=== PATIENT | female | born 1955 | race Caucasian/White ===

== ENCOUNTER 2018-03-29 16:42 | Emergency (ER) | payer BC, SELFPAY ==
--- NOTE | 2018-03-29 | GASB_PTH ---
PATIENT: ONELIA MOAY LOC: ED U#:[id number] AGE/SX: 62/F ROOM: RE03/29/[address]: Dr. Kavin Bell MD : 1955 BED: DIS: 03/29/2018 SPEC #: [id number] RECD: 03/29/18 19:51 STATUS: MENDOZA KALE #: [id number] MOODY: 03/29/18 00:[address]: Kavin Bell DEPT: SURGICAL PATHOLOGY RECD BY: Sanjiv Walker ENTERED: 03/30/18 08:35 SP TYPE: Gastric Bx OTHR DR: No Primary Care Phys Tissues: A - Gastric mucous membrane B - Esophageal mucous membrane Procedures: Surgery Specimen Level IV HEADER OPERATION: EGD ([facility]) PRE-OP DIAGNOSIS: Food impaction TISSUE SUBMITTED: A - Antral biopsy and H. pylori, B - Distal esophageal biopsy MICROSCOPIC DIAGNOSIS A. Gastric antrum, biopsy: Chronic active gastritis. B. Distal esophagus, biopsy: Reflux esophagitis. AM:enrique 03/31/18 COMMENT A. The results of immunohistochemistry for Helicobacter pylori will be reported separately ([id number]). MICROSCOPIC DESCRIPTION Slides are reviewed. GROSS DESCRIPTION A - Received in fixative is one container labeled with the patient's name and designated antral biopsy and H. pylori. The specimen consists of multiple irregular fragments of light butler soft tissue that in aggregate measure 0.6 x 0.1 x 0.1 cm. The specimen is totally submitted in one cassette. B - Received in fixative is one container labeled with the patient's name and designated distal esophageal biopsy. The specimen consists of multiple irregular fragments of light butler soft tissue that in aggregate measure 0.5 x 0.1 x 0.1 cm. The specimen is totally submitted in one cassette. / LINDA:enrique 03/30/18 TC:2 CPT: 58189 x2
[2018-03-29 16:43] VITALS: BP 166/68; PULSE 89; RESP 18; TEMP 36.8; O2SAT 98; BMI 24.2
--- NOTE | 2018-03-29 17:05 | IMM_PTH ---
PATIENT: ONELIA MOYA LOC: ED U#:[id number] AGE/SX: 62/F ROOM: RE03/29/[address]: [address]. Kavin Bell MD : 1955 BED: DIS: 03/29/2018 SPEC #: [id number] RECD: 03/30/18 12:44 STATUS: MENDOZA REQ #: [id number] MOODY: 03/29/18 17:[address]: Kavin Bell DEPT: IMMUNOHISTOCHEMISTRY RECD BY: Kamilah Johnson ENTERED: 03/30/18 12:45 SP TYPE: IMMUNO OTHR DR: No Primary Care Phys Tissues: A - Stomach, NOS Procedures: H Pylori (initial) PHYSICIAN & INSTITUTION [place] [address] SPECIMEN INFORMATION: Tissue Source: A - Antral biopsy Clinical Info: Food impaction Specimen Number: [id number] CPT code: 30594 METHODOLOGY: Deparaffinized sections of prefer/formalin-fixed tissue or PAP/DQ stained slides are incubated with monoclonal/polyclonal antibodies/oligonucleotide probes. Localization is made via biotin free immunoperoxidase method. Appropriate controls are performed and reacted as expected. Results on target cell population are indicated in the following table: RESULTS: ANTIBODY / CLONE RESULT Block A H Pylori (polyclonal) positive These tests were developed and their performance characteristics determined by [facility]. They may not have been cleared or approved by the U.S. Food and Drug Administration. The FDA has determined that such clearance or approval is not necessary. INTERPRETATION: A. Antral biopsy: Positive for Helicobacter pylori organisms. AM:enrique 03/31/18
--- NOTE | 2018-03-29 17:18 | NURSING ---
DR Aneesh CISNEROS PAGED AND ANSWERED CALL.
--- NOTE | 2018-03-29 17:46 | NURSING ---
DR Aneesh CISNEROS IN ROOM
--- NOTE | 2018-03-29 17:53 | PCM.HP.STD ---
Problem List (1) Esophageal obstruction due to food impaction Status: Acute History of Present Illness Date of Admission: 03/29/18 The patient is a 62 year old F who presents to the emergency department with acute onset of inability to swallow food or liquids after having eaten a piece of chicken. She states that she has never had a previous upper endoscopy. Upon questioning her however she states that she intermittently will choke on food. She is very anxious at the moment and hyperventilating. She is very nonspecific as to what food particulate causes her trouble. She has never had a colonoscopy. She has not had any unexpected weight loss. She does not currently have any primary care physician. She is not on any routine medications. She is accompanied by family members today. Past Medical History Allergies No Known Allergies Allergy (Verified 03/29/18 16:43) Surgical History: appendectomy, - - History of tubal ligation Smoking Status: Never smoker Alcohol: None Review of Systems Constitutional: Denies: Fever HEENT: Reports: Difficulty Swallowing, Dysphasia Cardiovascular: Denies: Chest Pain Respiratory: Reports: Cough Gastrointestinal: Denies: Abdominal Pain Genitourinary: Denies: Dysuria Psychiatric: Reports: Anxiety Endocrine: Denies: Change in Body Habitus VTE Information - Inpt Only VTE Present on Admission: No - Physical Exam General: Alert HEENT: - - Perioral irritation and rhinorrhea Oral: Moist Mucosa Neck: Supple Lungs: Clear to auscultation, Normal air movement, Tachypneic, - Cardiovascular: Regular rate, Regular Rhythm, Tachycardic Abdomen: Bowel Sounds Present, Soft, Non Tender, Non-Distended Extremities: No Calf Tenderness Lymphatic: No Cervical, Supraclavicular, or Inguinal Adenopathy Psych/Mental Status: Anxious Vital Signs Temp Pulse Resp BP Pulse Ox 98.3 F 89 18 166/68 H 98 03/29/18 16:43 03/29/18 16:43 03/29/18 16:43 03/29/18 16:43 03/29/18 16:43 Oxygen Delivery Method Room Air Weight: 150 lb Body Mass Index (BMI) 24.2 Assessment/Plan All Active Problems Esophageal obstruction due to food impaction (Acute) Findings are very much consistent with a baked chicken esophageal foreign body acute obstruction. The patient is extraordinarily anxious and panicked. She is hyperventilating and mildly tachycardic. I was contacted for consultation by Dr. Dillan Hammond. He is recommending our ability to proceed with esophagogastroduodenoscopy with foreign body food obstruction in the emergency room with Dr. Hammond providing conscious sedation. I concur. I have discussed with the patient and family members present the technique, benefits, risks, alternatives. No guarantees of success have been offered. She has had an opportunity to ask and have questions answered. We will proceed as soon as the endoscopy nursing staff can return to the hospital. Kavin Bell M.D., F.A.C.S.
--- NOTE | 2018-03-29 18:12 | NURSING ---
ENDO NURSE IN ROOM
[2018-03-29 18:18] VITALS: BP 120/93; PULSE 76; RESP 18
[2018-03-29 18:19] VITALS: BP 120/93; BP 159/71; BP 166/79; BP 168/81; BP 176/90; BP 194/115; BP 194/89; PULSE 77; PULSE 80; PULSE 87; PULSE 92; PULSE 96; PULSE 97; PULSE 99; RESP 14; RESP 16; RESP 23; RESP 98; O2SAT 100; O2SAT 82; O2SAT 84; O2SAT 91; O2SAT 97; O2SAT 98; O2SAT 99
[2018-03-29] MEDS: Lidocaine 2% 100 MG/5 ML Syringe 80 MG IV BOLUS (18:33)
[2018-03-29] MEDS: Propofol 200 MG/20 ML Vial IV BOLUS (18:54)
[2018-03-29 18:57] VITALS: BP 165/83; O2SAT 100
--- NOTE | 2018-03-29 19:11 | ED.DCSUM_ITS ---
- ER Visit Summary Date of Service: 03/29/18 Chief Complaint: Esophageal obstruction secondary to chicken food bolus History of Present Illness: The patient is a 62 F who was eating baked chicken. States the chicken became stuck. This occurred at approximately 1400. She denies prior problems with swallowing or obstruction. She denies allergies to soy products or egg products. She denies problems with anesthesia in the past. She denies fever, chills night sweats. She denies hematemesis. She has no other complaints. Physical Examination: Vital signs noted. She is afebrile. She is not hypoxic. Head is atraumatic normocephalic. Pupils are equal round reactive. Extraocular muscles are intact. TMs are pearly white with landmarks noted. Nares patent with no drainage. Posterior pharynx without erythema or exudate. Uvula is midline. There is no dysphonia or dysphasia. Trachea is midline. There is no stridor with auscultation of the neck. Heart is regular without murmur, gallop or rub. S1 and S2 are normal. Lungs are clear to auscultation with good movement of air bilaterally. Abdomen soft nontender. No skin lesions noted. Neuro exam is nonfocal. Test Results: None Emergency Department Course and Treatment: Dr. Kavin Bell was contacted regarding EGD. Patient was consented by me for deep sedation. Patient was consented for EGD by Dr. Kavin Bell. Patient received a total of 200 mg of propofol and 70 mg of ketamine. She also received 80 mg of lidocaine to suppress her gag reflex/cough. Total time for deep procedural sedation was 18 minutes 46 seconds. Patient was consented for deep sedation by me. She was a spine risk benefits of procedure. She was informed of the most common problems. She was given opportunity ask questions and none were asked. She tolerated procedure well. Treatment Plan: Follow-up with Dr. Kavin Bell next week and omeprazole per his recommendation Disposition: Discharge to home with family Impression: 1. Esophageal obstruction secondary to food bolus, chicken 2. Deep procedural sedation performed by , 18 minutes 46 seconds This note was generated with CitiLogicsation software. It may contain incorrect words, spelling, and punctuation that were not noted in review of the chart prior to signing ED Disposition - Plan for ED Patient: Disposition: Home or Assisted Living Chief Complaint: Foreign Body
[2018-03-29 19:12] VITALS: BP 158/81; PULSE 74; RESP 15; O2SAT 100
[2018-03-29] MEDS: Acetaminophen 500 MG Tablet 1000 MG PO (20:17)
[2018-03-29] MEDS: BENZOCAINE/MENTHOL 1 LOZENGE MUCOUS MEM (20:18)
--- NOTE | 2018-03-29 20:57 | ED.RN ---
SECONDARY ACCOUNT CREATED AT THIS TIME DUE TO PATIENT UNABLE TO GET DISCHARGE INSTRUCTIONS DUE TO REGISTRATION ERROR. NO NURSING CARE WAS GIVEN UNDER THIS ACCOUNT
--- NOTE | 2018-03-29 21:07 | ED.VISSUMM ---
- ER Visit Summary Date of Service: 03/29/18 Chief Complaint: [] History of Present Illness: The patient is a 62 F [] Physical Examination: [] Test Results: [] Emergency Department Course and Treatment: [] Treatment Plan: [] Disposition: [] Impression: [] This note was generated with UserZoom dictation software. It may contain incorrect words, spelling, and punctuation that were not noted in review of the chart prior to signing ED Disposition - Plan for ED Patient: Disposition: Home or Assisted Living Chief Complaint: Other, Pain/Inj
--- NOTE | 2018-03-29 21:11 | ED.DCSUM_ITS ---
- ER Visit Summary Date of Service: 03/29/18 Chief Complaint: [] History of Present Illness: The patient is a 62 F [] Physical Examination: [] Test Results: [] Emergency Department Course and Treatment: [] Treatment Plan: [] Disposition: [] Impression: [] This note was generated with Birst dictation software. It may contain incorrect words, spelling, and punctuation that were not noted in review of the chart prior to signing ED Disposition - Plan for ED Patient: Disposition: Home or Assisted Living Chief Complaint: Other, Pain/Inj Instructions: ED Foreign Body Esophageal Rslv Prescriptions: Omeprazole 40 mg PO DAILY #14 capsule.dr Referrals: Care Physician,No Primary [Primary Care Provider] - Kavin Bell MD [STAFF PHYSICIAN] - 3-5 Days
[2018-03-29 21:20] VITALS: BP 154/82; PULSE 76; RESP 16; O2SAT 95
--- NOTE | 2018-03-30 13:26 | OP.ENDO_ITS ---
Patient Name: Maria C Olivas Procedure Date: 03/29/2018 6:18 PM Date of : 1955 Age: 62 Procedure: Upper GI endoscopy Indications: Foreign body in the esophagus Providers: Kavin Bell MD Medicines: See note and sedation per Dr Hammond Complications: No immediate complications. Procedure: Pre-Anesthesia Assessment: - Prior to the procedure, a History and Physical was performed, and patient medications and allergies were reviewed. The patient's tolerance of previous anesthesia was also reviewed. The risks and benefits of the procedure and the sedation options and risks were discussed with the patient. All questions were answered, and informed consent was obtained. Prior Anticoagulants: The patient has taken no previous anticoagulant or antiplatelet agents. ASA Grade Assessment: II - A patient with mild systemic disease. After reviewing the risks and benefits, the patient was deemed in satisfactory condition to undergo the procedure. After obtaining informed consent, the endoscope was passed under direct vision. Throughout the procedure, the patient's blood pressure, pulse, and oxygen saturations were monitored continuously. The gastroscope was introduced through the mouth, and advanced to the second part of duodenum. The upper GI endoscopy was accomplished without difficulty. The patient tolerated the procedure well. Scope In: Scope Out: Findings: The Z-line was irregular and was found 38 cm from the incisors. Biopsies were taken with a cold forceps for histology. A small hiatal hernia was present. A mild Schatzki ring was found at the gastroesophageal junction. Biopsies were taken with a cold forceps for histology. Food was found in the lower third of the esophagus. The endoscope was removed, and an overtube with cap was fitted. The scope and overtube were then reinserted via the mouth and advanced to the esophagus to aid in foreign body removal. Diffuse mildly erythematous mucosa without bleeding was found in the gastric antrum. Biopsies were taken with a cold forceps for histology. The examined duodenum was normal. Impression: - Z-line irregular, 38 cm from the incisors. Biopsied. - Small hiatal hernia. - Mild Schatzki ring. Biopsied. - Food in the lower third of the esophagus. Advanced into the stomach facilitated by use of an overtube. - Erythematous mucosa in the antrum. Biopsied. - Normal examined duodenum. - An overtube with cap was used to aid in foreign body removal. Recommendation: - Discharge patient to home. - Resume previous diet. - Use Prilosec (omeprazole) 40 mg PO daily. - Return to my office in 1 week. - Continue present medications. Procedure Code(s): --- Professional --- 72966, Esophagogastroduodenoscopy, flexible, transoral; with biopsy, single or multiple CPT copyright 2017 [employer]. All rights reserved. The codes documented in this report are preliminary and upon burglar alarm superintendent review may be revised to meet current compliance requirements. Kavin Bell MD 03/29/2018 7:14:53 PM This report has been signed electronically. Number of Addenda: 0 Note Initiated On: 03/29/2018 6:18 PM
== END 2018-03-29 21:21 | disposition home or self-care (01) ==
PROVIDERS: Emergency Provider Emergency Medicine; Visit Provider Surgery
PROC: 0DJ08ZZ Inspection of Upper Intestinal Tract, Via Natural or Artificial Opening Endoscopic (ICD-10-PCS; CPT 43235; principal; 2018-03-29 17:00)
DX: K22.2 Esophageal obstruction (principal); K44.9 Diaphragmatic hernia without obstruction or gangrene; T18.120A Food in esophagus causing compression of trachea, initial encounter; T17.220A Food in pharynx causing asphyxiation, initial encounter
CPT/HCPCS: 43239; 88305; 88342; 99152; 99285; J7030; A4216

== ENCOUNTER 2018-06-02 09:04 | Day surgery (SDC) | payer BC, SELFPAY ==
[2018-06-02] VITALS (7 sets, daily range): BP systolic 96–120; BP diastolic 57–72; PULSE 71–81; RESP 14–16; TEMP 36.6–37.4; O2SAT 95–97; BMI 30.7
--- NOTE | 2018-06-02 | GASB_PTH ---
PATIENT: ONELIA MOYA LOC: EN U#:[id number] AGE/SX: 62/F ROOM: RE06/02/[address]: Dr. Kavin Bell MD : 1955 BED: DIS: 06/02/2018 SPEC #: [id number] RECD: 06/02/18 13:07 STATUS: MENDOZA KALE #: [id number] MOODY: 06/02/18 00:[address]: Kavin Bell DEPT: SURGICAL PATHOLOGY RECD BY: Sanjiv Walker ENTERED: 06/02/18 13:07 SP TYPE: Gastric Bx OTHR DR: No Primary Care Phys Tissues: A - Gastric mucous membrane B - Esophagus, NOS Procedures: Special Stain Group I Surgery Specimen Level IV GMS Stain (control) HEADER OPERATION: EGD ([facility]) with dilatation PRE-OP DIAGNOSIS: Postesophageal obstruction due to food impaction TISSUE SUBMITTED: A - Biopsy gastric antrum, H. pylori and path, B - Biopsy mid esophagus MICROSCOPIC DIAGNOSIS A. Gastric antrum, biopsy: Moderate gastritis. See microscopic description and comment. B. Mid esophagus, biopsy: Fragments of squamous epithelium with changes consistent with eosinophilic esophagitis and chronic inflammation. Superficial acute inflammation. Special stain for fungi is negative for organisms; matched control is appropriate. See comment. SJ:enrique 06/05/18 COMMENT A. The results of immunohistochemistry for Helicobacter pylori will be reported separately ([id number]). B. The specimen shows increased number of eosinophils (more than 20 per high power field) consistent with eosinophilic esophagitis. MICROSCOPIC DESCRIPTION Slides are reviewed. A. The specimen shows fragments of gastric mucosa with chronic inflammatory cell infiltrates in the lamina propria consisting of lymphocytes and plasma cells, consistent with moderate chronic gastritis. GROSS DESCRIPTION A - Received in fixative is one container labeled with the patient's name and designated gastric antrum. The specimen consists of one irregular fragment of light butler soft tissue that measures 0.6 x 0.5 x 0.1 cm. The specimen is totally submitted in one cassette. B - Received in fixative is one container labeled with the patient's name and designated mid esophagus. The specimen consists of multiple irregular fragments of light butler soft tissue that in aggregate measure 0.6 x 0.3 x <0.1 cm. The specimen is totally submitted in one cassette. / AM:enrique 06/02/18 TC:3 CPT: 85191 x2, 98843
--- NOTE | 2018-06-02 10:15 | IMM_PTH ---
PATIENT: ONELIA MOYA LOC: EN U#:[id number] AGE/SX: 62/F ROOM: RE06/02/[address]: Dr. Kavin Bell MD : 1955 BED: DIS: 06/02/2018 SPEC #: [id number] RECD: 06/02/18 13:39 STATUS: MENDOZA REQ #: [id number] MOODY: 06/02/18 10:[address]: Kavin Bell DEPT: IMMUNOHISTOCHEMISTRY RECD BY: Kamilah Johnson ENTERED: 06/02/18 13:40 SP TYPE: IMMUNO OTHR DR: No Primary Care Phys Tissues: A - Stomach, NOS Procedures: H Pylori (initial) PHYSICIAN & INSTITUTION [place] [address] SPECIMEN INFORMATION: Tissue Source: A - Biopsy gastric antrum Clinical Info: Postesophageal obstruction due to food Specimen Number: [id number] CPT code: 97781 METHODOLOGY: Deparaffinized sections of prefer/formalin-fixed tissue or PAP/DQ stained slides are incubated with monoclonal/polyclonal antibodies/oligonucleotide probes. Localization is made via biotin free immunoperoxidase method. Appropriate controls are performed and reacted as expected. Results on target cell population are indicated in the following table: RESULTS: ANTIBODY / CLONE RESULT Block A H Pylori (polyclonal) negative These tests were developed and their performance characteristics determined by [facility]. They may not have been cleared or approved by the U.S. Food and Drug Administration. The FDA has determined that such clearance or approval is not necessary. INTERPRETATION: A. Gastric antrum, biopsy: Negative for Helicobacter pylori organisms. SJ:enrique 06/05/18
--- NOTE | 2018-06-02 10:50 | OP.ENDO_ITS ---
Patient Name: Maria C Olivas Procedure Date: 06/02/2018 10:17 AM Date of : 1955 Age: 62 Procedure: Upper GI endoscopy Indications: Dysphagia Providers: Kavin Bell MD Referring MD: Kavin Bell MD Medicines: See the Anesthesia note for documentation of the administered medications Complications: No immediate complications. Procedure: Pre-Anesthesia Assessment: - Prior to the procedure, a History and Physical was performed, and patient medications and allergies were reviewed. The patient's tolerance of previous anesthesia was also reviewed. The risks and benefits of the procedure and the sedation options and risks were discussed with the patient. All questions were answered, and informed consent was obtained. Prior Anticoagulants: The patient has taken no previous anticoagulant or antiplatelet agents. ASA Grade Assessment: II - A patient with mild systemic disease. After reviewing the risks and benefits, the patient was deemed in satisfactory condition to undergo the procedure. After obtaining informed consent, the endoscope was passed under direct vision. Throughout the procedure, the patient's blood pressure, pulse, and oxygen saturations were monitored continuously. The gastroscope was introduced through the mouth, and advanced to the second part of duodenum. The upper GI endoscopy was accomplished without difficulty. The patient tolerated the procedure well. Scope In: 10:32:13 AM Scope Out: 10:42:51 AM Total Procedure Duration Time 0 hours 10 minutes 38 seconds Findings: LA Grade A (one or more mucosal breaks less than 5 mm, not extending between tops of 2 mucosal folds) esophagitis with no bleeding was found 30 cm from the incisors. Biopsies were taken with a cold forceps for histology. A medium-sized hiatal hernia was present. A mild Schatzki ring was found at the gastroesophageal junction. A guide wire was placed, then the scope was withdrawn. Using the wire as a guide, dilation with an 18-19-20 mm balloon dilator was performed to 20 mm. The dilation site was examined following endoscope reinsertion and showed mild improvement in luminal narrowing. Estimated blood loss was minimal. Diffuse mildly erythematous mucosa without bleeding was found in the gastric antrum. Biopsies were taken with a cold forceps for histology. The examined duodenum was normal. Impression: - LA Grade A reflux esophagitis in the mid esophagus, friable. Biopsied. - Medium-sized hiatal hernia. Wide open EG junction with free reflux - Mild Schatzki ring. Dilated 20mm - Erythematous mucosa in the antrum. Biopsied looking for resolution of H pylori - Normal examined duodenum. Recommendation: - Discharge patient to home. - Resume previous diet. - Continue present medications. - Telephone my office for pathology results in 1 week. Procedure Code(s): --- Professional --- 19537, Esophagogastroduodenoscopy, flexible, transoral; with insertion of guide wire followed by passage of dilator(s) through esophagus over guide wire 48436, 59, Esophagogastroduodenoscopy, flexible, transoral; with biopsy, single or multiple Diagnosis Code(s): --- Professional --- K21.0, Gastro-esophageal reflux disease with esophagitis K44.9, Diaphragmatic hernia without obstruction or gangrene K22.2, Esophageal obstruction K31.89, Other diseases of stomach and duodenum R13.10, Dysphagia, unspecified CPT copyright 2017 [employer]. All rights reserved. The codes documented in this report are preliminary and upon professional fee coder review may be revised to meet current compliance requirements. Kavin Bell MD 06/02/2018 10:49:16 AM This report has been signed electronically. Number of Addenda: 0 Note Initiated On: 06/02/2018 10:17 AM
== END 2018-06-02 11:30 | disposition home or self-care (01) ==
LOC: EN 09:06 → AC 09:07
PROVIDERS: Referring Provider Surgery; Visit Provider Surgery
PROC: 0DJ08ZZ Inspection of Upper Intestinal Tract, Via Natural or Artificial Opening Endoscopic (ICD-10-PCS; CPT 43235; principal; 2018-06-02 10:10)
DX: K21.0 Gastro-esophageal reflux disease with esophagitis (principal); K44.9 Diaphragmatic hernia without obstruction or gangrene; R13.10 Dysphagia, unspecified; K22.2 Esophageal obstruction; T18.128A Food in esophagus causing other injury, initial encounter; K31.89 Other diseases of stomach and duodenum; K29.70 Gastritis, unspecified, without bleeding
CPT/HCPCS: 43239; 43248; 88305; 88312; 88342; J7120

== ENCOUNTER 2018-06-15 08:45 | Day surgery (SDC) | payer BC, SELFPAY ==
[2018-06-07 09:56] VITALS: BMI 30.7
[2018-06-15 09:06] VITALS: BP 120/94; PULSE 78; RESP 16; TEMP 36.7; O2SAT 99
== END 2018-06-15 09:51 | disposition home or self-care (01) ==
PROVIDERS: Referring Provider Surgery; Visit Provider Surgery
PROC: F00ZJWZ Instrumental Swallowing and Oral Function Assessment using Swallowing Equipment (ICD-10-PCS; CPT 43235; principal; 2018-06-15 08:55)
DX: R13.10 Dysphagia, unspecified (principal)
CPT/HCPCS: 78258

== ENCOUNTER 2021-11-06 13:40 | Emergency (ER) | payer MEDICARE, SELFPAY ==
[2021-11-06 13:41] VITALS: BP 116/70; PULSE 81; RESP 18; TEMP 36.4; O2SAT 98; BMI 28.3
[2021-11-06] MEDS: 0.9% Normal Saline 1,000 ML 1000 ML IV (15:05)
--- NOTE | 2021-11-06 15:08 | CM.ED ---
Social Work Note Reason for Referral: No PCP SW reviewed chart, no PCP listed for pt. SW in to speak with pt. Pt confirms she has no PCP. SW provided pt with PCP list. Phyllis Poe ARBITRATOR, VIBRATING SCREED OPERATOR
[2021-11-06 15:15] LABS: Absolute Lymphocyte Count 0.89 X10^3/uL (0.83-4.51); Absolute Neutrophil Count 0.8 X10^3/uL (2.0-7.7); Basophil# 0.02 X10^3/uL; Basophil% 0.9 % (0-1); Hematocrit 43.9 % (37-47); Hemoglobin 14.7 g/dL (12.0-15.0); Lymphocyte # 0.89 X10^3/ul (0.83-4.51); Lymphocyte % 41.8 % (19-41); Mean Corp Hgb Conc 33.5 g/dL (32-36); Mean Corpuscular Hgb 29.5 pg (27.0-32.0); Mean Platelet Vol. 11.1 fl (6.2-12.0); Monocyte# 0.44 X10^3/uL; Monocyte% 20.7 % (0-10); NRBC Flagged by Analyzer 0 % (0-5); Neutrophil # 0.77 X10^3/uL (2.7-7.7); Neutrophil % 36.1 % (47-70); POSITIVE DIFFERENTIAL YES; Platelet Count 200 K/mm3 (150-450); RBC Distribution Width CV 12.5 % (11.6-14.6); RBC Distribution Width SD 40.3 fl (35.1-43.9); Red Blood Count 4.99 M/mm3 (4.2-5.4); White Blood Count 2.1 K/mm3 (4.4-11.0)
[2021-11-06 15:16] LABS: Differential Indicated SCAN CRITERIA MET
[2021-11-06 15:31] LABS: ALB/GLOB Ratio 1.1 RATIO (0.9-2.4); AST(SGOT) 31 U/L (15-37); Alanine Aminotransfer ALT/SGPT 24 U/L (13-56); Albumin, Serum 3.9 g/dL (3.2-5.0); Alkaline Phosphatase 82 U/L (45-117); Anion Gap 9 (5-15); BUN 19 mg/dL (7-18); BUN/Creat Ratio 17.9 RATIO (10-20); Calcium,Total 9.1 mg/dL (8.5-10.1); Chloride 103 mmol/L (98-107); Creatinine, Serum 1.06 mg/dL (0.55-1.02); EST Glomerular Filtration Rate 55 mL/min (>60); Est Glom Filt Rate - Afr Amer 67 mL/min (>60); Estimated Creatinine Clearance 46.98 ml/min; Globulin 3.6 g/dL (2.2-4.2); Glucose 105 mg/dL (74-106); Lipase 181 U/L (73-393); Magnesium 2.2 mg/dL (1.6-2.6); Potassium 3.2 mmol/L (3.5-5.1); Protein, Total 7.5 g/dL (6.4-8.2); Sodium Level 137 mmol/L (136-145)
[2021-11-06 15:48] LABS: Platelet Estimate ADEQUATE (ADEQ)
[2021-11-06 15:49] LABS: Red Cell Morphology NORM C+C NORMAL (NORM C&C)
[2021-11-06 16:13] LABS: Mucous, Urine 0 SEEN /hpf (<or=2+); Red Blood Cells-Urine 0 SEEN /hpf (0-5)
[2021-11-06 16:26] LABS: Color, Urine Yellow (Yellow); Glucose, Dipstick Normal (Normal); Ketone-Dipstick 5 mg/dl (Negative); Leukocyte Esterase-Dipstick 100 /ul (Negative); Nitrite-Dipstick Positive (Negative); Occult Blood-Urine 10 /ul (Negative); Protein-Dipstick 30 mg/dl (Negative); Urine Bilirubin Dipstick Negative (Negative); Urine Clarity Sl. Cloudy (Clear); Urine Urobilinogen Normal (Normal)
[2021-11-06 16:32] VITALS: BP 116/63; BP 116/70; PULSE 80; PULSE 81; RESP 16; RESP 18; TEMP 36.4; O2SAT 98; O2SAT 99
--- NOTE | 2021-11-06 16:43 | EX.ED.DYSGE1 ---
HPI History of Present Illness Chief Complaint: General Illness Informant: patient Narrative Narrative: Is a 66-year-old female with history of GERD, eosinophilic esophagitis and H. pylori presenting with fever, chills and dizziness. She states of 3 days ago she had a temperature of 100.7. She notes has had decreased oral intake. She is a decreased appetite as well as decreased energy level. She is also had diarrhea. She states has had 4 episodes of nonbloody diarrhea today. She denies any associated chest pain, shortness of breath or difficulty breathing. No associated nausea or vomiting. Denies any sick contacts but does work at [employer]. Has had decreased urination. Denies any recent antibiotic use and denies any known history of C. difficile. No other complaints at this time. [facility] Medical History (Updated 11/06/21 @ 16:[address] Claudia Lu DO) EE (eosinophilic esophagitis) Esophageal obstruction due to food impaction Helicobacter pylori gastritis Home Medications cephalexin 500 mg capsule 500 mg PO Q8H #21 caps 11/06/21 [Rx Last Taken Unknown] ondansetron HCl 4 mg tablet 4 mg PO Q8H 3 days #9 tabs 11/06/21 [Rx Last Taken Unknown] Allergy/AdvReac Type Severity Reaction Status Date / Time No Known Allergies Allergy Verified 11/06/21 13:42 Family History Father Prostate cancer Surgical History Hx of appendectomy Hx of tubal ligation Social History Smoking Status: Never smoker second hand exposure: No alcohol intake: never substance use type: does not use caffeine: Yes what type of physical activity do you participate in: none frequency: does not exercise seatbelt use: always ROS ROS ED Constitutional Constitutional ED: Reports chills, fever(s), sweats and other Details: Decreased appetite Eyes Eyes: Denies blurry vision or change in vision ENT ENT ED: Denies rhinorrhea or sore throat Cardiovascular Cardiovascular: Denies chest pain or palpitations Respiratory/Chest Respiratory/Chest: Denies dyspnea or dyspnea on exertion Gastrointestinal Gastrointestinal: Reports diarrhea; Denies abdominal pain, nausea or vomiting Genitourinary Genitourinary ED: Reports other Details: Decreased urination ; Denies dysuria or hematuria Musculoskeletal Musculoskeletal: Denies arthralgias or back pain Integumentary Denies Abrasions or rash Neurologic Neurologic: Reports headache(s); Denies paresthesias Psychiatric Psychiatric: Denies anxiety EXAM Physical Exam Const Vital Signs: 11/06/21 13:41 11/06/21 13:42 11/06/21 16:32 Temperature 97.5 F L Temperature Source Temporal Pulse Rate 81 80 Respiratory Rate 18 16 Respiratory Effort Normal Non-Labored Respiratory Pattern Normal Blood Pressure 116/70 116/63 Blood Pressure Mean 85 80 Pulse Ox 98 99 Oxygen Delivery Method Room Air Room Air 11/06/21 16:32 Temperature 97.5 F L Temperature Source Temporal Pulse Rate 81 Respiratory Rate 18 Respiratory Effort Respiratory Pattern Blood Pressure 116/70 Blood Pressure Mean Pulse Ox 98 Oxygen Delivery Method Room Air Positive well nourished and well developed General Appearance ED: well developed and NAD HEENT Reports dry mucous membranes Negative for trauma Mouth ED: Yes dry mucous membranes Mouth: dry mucous membranes Eyes PERRL and EOMs intact bilaterally Neck supple and no JVD Chest Wall inspection of chest normal Resp normal respiratory effort and clear to auscultation bilaterally Cardio regular rate, regular rhythm and no murmurs GI normal to inspection, nondistended, normoactive bowel sounds, non-tender and non-distended Back/Spine no CVA tenderness Extremity normal to inspection Neuro oriented x3 Motor Exam: Negative for general weakness Psych mental status grossly normal Skin no rashes or lesions noted MDM MDM MDM Narrative Medical decision making narrative: Patient's evaluated for dizziness, fever, chills and diarrhea. Physical exam is benign. Her vital signs are normal. She is currently afebrile. She is a mild leukopenia of 2.1. No left shift appreciated. Creatinine is 1.06 her potassium was 3.2. blood work otherwise largely unremarkable. Urinalysis is concerning with infection with positive nitrites, 100 of esterase and 0-5 white blood cells. Urine culture sent. Patient started on Keflex. She is discharged home with a prescription for Keflex as well as Zofran. She is counseled on return precautions. Given that her abdomen is soft and nontender of the lower suspicion for an acute intra-abdominal infection. Do not think imaging is indicated at this time. Patient is given a fluid bolus and looks improved on repeat evaluation. Discharged home in stable condition. Lab Data Attestation: I reviewed the patient's lab results. Labs: Laboratory Results - last 24 hr 11/06/21 11/06/21 11/06/21 14:04 14:04 16:05 WBC 2.1 L RBC 4.99 Hgb 14.7 Hct 43.9 MCV 88.0 MCH 29.5 MCHC 33.5 RDW Std Deviation 40.3 RDW Coeff of Bre 12.5 Plt Count 200 MPV 11.1 Immature Gran % (Auto) 0.500 Neut % (Auto) 36.1 L Lymph % (Auto) 41.8 H Reeves % (Auto) 20.7 H Eos % (Auto) 0.0 Baso % (Auto) 0.9 Absolute Neuts (auto) 0.8 L Absolute Lymphs (auto) 0.89 Nucleated RBC % 0 Differential Comment SEE COMMENT Platelet Estimate ADEQUATE RBC Morphology NORM C+C Sodium 137 Potassium 3.2 L Chloride 103 Carbon Dioxide 25.0 Anion Gap 9 BUN 19 H Creatinine 1.06 H Estim Creat Clear Calc 46.98 Est GFR (MDRD) Af Amer 67 Est GFR (MDRD) Non-Af 55 L BUN/Creatinine Ratio 17.9 Glucose 105 Calcium 9.1 Magnesium 2.2 Total Bilirubin 0.30 AST 31 ALT 24 Alkaline Phosphatase 82 Total Protein 7.5 Albumin 3.9 Globulin 3.6 Albumin/Globulin Ratio 1.1 Lipase 181 Urine Color Yellow Urine Clarity Sl. Cloudy Urine pH 5.0 Ur Specific [place] 1.020 Urine Protein 30 H Urine Glucose (UA) Normal Urine Ketones 5 H Urine Occult Blood 10 H Urine Nitrite Positive H Urine Bilirubin Negative Urine Urobilinogen Normal Ur Leukocyte Esterase 100 H Urine RBC 0 SEEN Urine WBC 0-5 SEEN Ur Squamous Epith Cells 5-10 SEEN Urine Bacteria 4+ Hyaline Casts 10-25 SEEN Urine Mucus 0 SEEN Discharge Plan Triage Chief Complaint: General Illness ED Provider: Claudia Lu Dx/Rx/DC Orders Clinical Impression: Acute UTI, Acute dehydration Instructions: ED Dehydration (Adult), ED CYSTITIS Female Adult Prescriptions: New cephalexin 500 mg capsule 500 mg PO Q8H Qty: 21 0RF ondansetron HCl 4 mg tablet 4 mg PO Q8H 3 Days Qty: 9 0RF Primary Care Provider: Care Physician,No Primary Referrals: Marcin Ogden MD [STAFF PHYSICIAN] - Care Physician,No Primary [Primary Care Provider] - Activity Restrictions/Additional Instructions: May take [id number] Pepto-Bismol for diarrhea. If you feel that you are getting worse or develop worsening abdominal pain please return to the emergency room. Try to drink lots of fluids at home. Potassium was mildly low today so try to eat or drink potassium rich foods. Disposition Disposition: Home, Self Care
[2021-11-06 16:44] LABS: Bacteria 4+ /hpf (None Seen); Squamous Epithelial Cells - UA 5-10 SEEN /hpf (5-10); White Blood Cells 0-5 SEEN /hpf (0-5)
[2021-11-06 16:45] LABS: Hyaline Cast 10-25 SEEN /lpf (0-5)
[2021-11-06] MEDS: Cephalexin 250 MG Capsule 500 MG PO (17:01)
== END 2021-11-06 17:12 | disposition home or self-care (01) ==
PROVIDERS: Emergency Provider Emergency Medicine; Visit Provider Emergency Medicine
DX: N39.0 Urinary tract infection, site not specified (principal); R19.7 Diarrhea, unspecified; E86.0 Dehydration
CPT/HCPCS: 80053; 81001; 83690; 83735; 85025; 87077; 87086; 87088; 87186; 99284; J7030; A4216